=== PATIENT | female | born 1980 | race Caucasian/White ===

== ENCOUNTER 2017-04-05 18:58 | Emergency (ER) | payer MEDICAID ==
[~2017-04-05] VITALS: Ht 152.4 cm; Wt 92.8 kg
[2017-04-05 19:02] VITALS: BP 143/92
== END 2017-04-05 20:20 | disposition home or self-care (01) ==
LOC: ED 20:04
DX: S03.2XXA Dislocation of tooth, initial encounter (principal); W26.8XXA Contact with other sharp object(s), not elsewhere classified, initial encounter; Y93.89 Activity, other specified; Y92.89 Other specified places as the place of occurrence of the external cause; Y99.8 Other external cause status
CPT/HCPCS: 99283

== ENCOUNTER 2017-06-03 09:00 | Emergency (ER) | payer MEDICAID ==
[~2017-06-03] VITALS: Ht 152.4 cm; Wt 85.7 kg
[2017-06-03 09:01] VITALS: BP 136/84
[2017-06-03 10:20] LABS: RAPID INFLUENZA A Negative (Negative); RAPID INFLUENZA B Negative (Negative)
== END 2017-06-03 11:03 | disposition home or self-care (01) ==
LOC: ED 10:57
DX: J20.8 Acute bronchitis due to other specified organisms (principal); J00 Acute nasopharyngitis [common cold]
CPT/HCPCS: 71020; 87400; 99285